=== PATIENT | male | born 1950 | race Caucasian/White ===

== ENCOUNTER 2016-11-13 08:55 | Emergency (ER) | payer OTHER ==
[~2016-11-13] VITALS: Ht 172.7 cm; Wt 42.8 kg
[2016-11-13 11:21] VITALS: BP 158/91
== END 2016-11-13 11:22 | disposition home or self-care (01) ==
LOC: EDBD 08:55 → EME 08:55
DX: S09.90XA Unspecified injury of head, initial encounter (principal); S00.83XA Contusion of other part of head, initial encounter; W18.39XA Other fall on same level, initial encounter
CPT/HCPCS: 70450; 99281; 99283